=== PATIENT | male | born 1955 | race American Indian/Alaskan Native ===

== ENCOUNTER 2018-01-23 22:49 | Emergency (ER) | payer MEDICAID ==
[2018-01-23] MEDS ORDERED: NACL 0.9% 1000 ML 1,000 ML IV ONE (23:35)
--- NOTE | 2018-01-23 23:41 | Emergency Department Report ---
HPI - HPI HPI: 62-year-old male presents to ED after drinking alcohol and falling. Complain of mild headache, left wrist pain. No bleeding, no open wounds. Patient states he fall going to the bathroom, fell and hit his arm. <RENO MONTES - Last Filed: 01/24/18 01:56> <BRAN CRONIN - Last Filed: 01/24/18 11:45> - General Chief Complaint: Fall Time Seen by Provider: 01/23/18 23:34 ED Past Medical Hx - Past Medical History Previous Medical History?: Yes Hx Hypertension: Yes Hx Congestive Heart Failure: No Hx Diabetes: Yes Hx Seizures: Yes Hx Asthma: No Hx COPD: No - Social History Smoking Status: Current Every Day Smoker <RENO MONTES - Last Filed: 01/24/18 01:56> <BRAN CRONIN - Last Filed: 01/24/18 11:45> - Medications Home Medications: Home Medications Medication Instructions Recorded Confirmed Last Taken Type Hydrochlorothiazide [HCTZ] 25 mg PO QDAY 07/21/15 09/19/17 09/18/17 History Insulin Glargine [Lantus VIAL] 10 units SQ QHS 07/21/15 09/19/17 09/18/17 History metFORMIN [Glucophage] 500 mg PO BID 07/21/15 09/19/17 09/18/17 History Aspirin [Aspirin EC] 81 mg PO DAILY 09/19/17 09/19/17 09/18/17 History AtorvaSTATin [Lipitor] 20 mg PO QHS 09/19/17 09/19/17 09/18/17 History Carvedilol [Coreg] 12.5 mg PO BID 09/19/17 09/19/17 09/18/17 History Losartan [Cozaar] 100 mg PO QDAY 09/19/17 09/19/17 09/18/17 History Famotidine [Pepcid] 20 mg PO BID #60 tablet 09/22/17 Unknown Rx Folic Acid [Folvite] 1 mg PO QDAY #30 tablet 09/22/17 Unknown Rx Thiamine [Vitamin B-1] 100 mg PO QDAY #30 tablet 09/22/17 Unknown Rx levETIRAcetam [Keppra TAB] 1,000 mg PO BID #60 tablet 09/22/17 Unknown Rx ED Review of Systems ROS: Stated complaint: LACERATION TO LT ARM Other details as noted in HPI <SIMONRENO - Last Filed: 01/24/18 01:56> ROS: Stated complaint: LACERATION TO LT ARM Other details as noted in HPI <ROSEANNEBRAN - Last Filed: 01/24/18 11:45> Physical Exam - Physical Exam Vital Signs: Vital Signs 01/23/18 01/23/18 22:50 23:21 Temperature 97.7 F 97.7 F Pulse Rate 89 84 Respiratory 18 21 Rate Blood Pressure 130/89 Blood Pressure 122/81 [Left] O2 Sat by Pulse 97 96 Oximetry Physical Exam: Physical Exam: - General Limitations: Appears drunk General appearance: alert, in no apparent distress, - Head Head exam: Present: atraumatic, normocephalic - Eye Eye exam: Present: normal appearance - ENT ENT exam: Present: mucous membranes moist - Neck Neck exam: Present: normal inspection - Respiratory Respiratory exam: Present: normal lung sounds bilaterally. Absent: respiratory distress - Cardiovascular Cardiovascular Exam: Present: normal rhythm, tachycardia. Absent: systolic murmur, diastolic murmur, rubs, gallop - GI/Abdominal GI/Abdominal exam: Present: soft, normal bowel sounds - Extremities Exam Extremities exam: Present: Right wrist tenderness - Back Exam Back exam: Present: normal inspection - Neurological Exam Neurological exam: Present: alert, oriented X3 - Psychiatric Psychiatric exam: normal affect and mood - Skin Skin exam: Present: warm, dry, intact, normal color. Absent: rash <SIMONRENO - Last Filed: 01/24/18 01:56> - Physical Exam Vital Signs: Vital Signs 01/23/18 01/23/18 01/24/18 22:50 23:21 00:00 Temperature 97.7 F 97.7 F Pulse Rate 89 84 76 Respiratory 18 21 16 Rate Blood Pressure 130/89 122/80 Blood Pressure 122/81 [Left] O2 Sat by Pulse 97 96 93 Oximetry 01/24/18 01/24/18 01/24/18 01:00 02:00 03:00 Temperature Pulse Rate Respiratory Rate Blood Pressure 102/65 106/67 128/84 Blood Pressure [Left] O2 Sat by Pulse 90 92 93 Oximetry 01/24/18 01/24/18 01/24/18 04:00 05:00 06:00 Temperature Pulse Rate Respiratory Rate Blood Pressure 111/76 127/83 122/81 Blood Pressure [Left] O2 Sat by Pulse 94 96 95 Oximetry 01/24/18 07:34 Temperature 98.6 F Pulse Rate Respiratory Rate Blood Pressure Blood Pressure [Left] O2 Sat by Pulse Oximetry <BRAN CRONIN - Last Filed: 01/24/18 11:45> ED Course Vital Signs 01/23/18 01/23/18 22:50 23:21 Temperature 97.7 F 97.7 F Pulse Rate 89 84 Respiratory 18 21 Rate Blood Pressure 130/89 Blood Pressure 122/81 [Left] O2 Sat by Pulse 97 96 Oximetry - Reevaluation(s) Reevaluation #1: 01/24/18 01:56 to be d/c whenalcohol 0.08 or below <RENO MONTES - Last Filed: 01/24/18 01:56> Vital Signs 01/23/18 01/23/18 01/24/18 22:50 23:21 00:00 Temperature 97.7 F 97.7 F Pulse Rate 89 84 76 Respiratory 18 21 16 Rate Blood Pressure 130/89 122/80 Blood Pressure 122/81 [Left] O2 Sat by Pulse 97 96 93 Oximetry 01/24/18 01/24/18 01/24/18 01:00 02:00 03:00 Temperature Pulse Rate Respiratory Rate Blood Pressure 102/65 106/67 128/84 Blood Pressure [Left] O2 Sat by Pulse 90 92 93 Oximetry 01/24/18 01/24/18 01/24/18 04:00 05:00 06:00 Temperature Pulse Rate Respiratory Rate Blood Pressure 111/76 127/83 122/81 Blood Pressure [Left] O2 Sat by Pulse 94 96 95 Oximetry 01/24/18 07:34 Temperature 98.6 F Pulse Rate Respiratory Rate Blood Pressure Blood Pressure [Left] O2 Sat by Pulse Oximetry <BRAN CRONIN - Last Filed: 01/24/18 11:45> ED Medical Decision Making - Lab Data Result diagrams: 01/23/18 23:51 01/23/18 23:51 <RENO MONTES - Last Filed: 01/24/18 01:56> - Lab Data Result diagrams: 01/23/18 23:51 01/23/18 23:51 Laboratory Results - last 24 hr 01/23/18 01/23/18 01/23/18 23:51 23:51 23:51 WBC 8.1 RBC 3.63 L Hgb 12.4 Hct 36.7 MCV 101 H MCH 34 H MCHC 34 RDW 14.4 Plt Count 219 Add Manual Diff Complete Total Counted 100 Seg Neuts % (Manual) 47.0 Band Neutrophils % 0 Lymphocytes % (Manual) 37.0 H Reactive Lymphs % (Man) 0 Monocytes % (Manual) 9.0 H Eosinophils % (Manual) 5.0 H Basophils % (Manual) 2.0 H Metamyelocytes % 0 Myelocytes % 0 Promyelocytes % 0 Blast Cells % 0 Nucleated RBC % Not Reportable Seg Neutrophils # Man 3.8 Band Neutrophils # 0.0 Lymphocytes # (Manual) 3.0 Abs React Lymphs (Man) 0.0 Monocytes # (Manual) 0.7 Eosinophils # (Manual) 0.4 Basophils # (Manual) 0.2 H Metamyelocytes # 0.0 Myelocytes # 0.0 Promyelocytes # 0.0 Blast Cells # 0.0 WBC Morphology Not Reportable Hypersegmented Neuts Not Reportable Hyposegmented Neuts Not Reportable Hypogranular Neuts Not Reportable Smudge Cells Not Reportable Toxic Granulation Not Reportable Toxic Vacuolation Not Reportable Dohle Bodies Not Reportable Pelger-Huet Anomaly Not Reportable Corey Rods Not Reportable Platelet Estimate Appears normal Clumped Platelets Not Reportable Plt Clumps, EDTA Not Reportable Large Platelets Not Reportable Giant Platelets Not Reportable Platelet Satelliting Not Reportable Plt Morphology Comment Not Reportable RBC Morphology Not Reportable Dimorphic RBCs Not Reportable Polychromasia Not Reportable Hypochromasia Not Reportable Poikilocytosis Not Reportable Anisocytosis 1+ Microcytosis Not Reportable Macrocytosis Not Reportable Spherocytes Not Reportable Pappenheimer Bodies Not Reportable Sickle Cells Not Reportable Target Cells Not Reportable Tear Drop Cells Not Reportable Ovalocytes Not Reportable Helmet Cells Not Reportable [place] Bodies Not Reportable [place] Rings Not Reportable Tylor Cells Not Reportable Bite Cells Not Reportable Crenated Cell Not Reportable Elliptocytes Not Reportable Acanthocytes (Spur) Not Reportable Rouleaux Not Reportable Hemoglobin C Crystals Not Reportable Schistocytes Not Reportable Malaria parasites Not Reportable Tree Bodies Not Reportable Hem Pathologist Commnt No Sodium 142 Potassium 3.7 Chloride 100.6 Carbon Dioxide 22 Anion Gap 23 BUN 14 Creatinine 0.8 Estimated GFR > 60 BUN/Creatinine Ratio 18 Glucose 95 Calcium 9.1 Total Bilirubin 0.40 AST 30 ALT 26 Alkaline Phosphatase 51 Total Protein 6.7 Albumin 3.7 L Albumin/Globulin Ratio 1.2 Plasma/Serum Alcohol 0.32 H 01/24/18 09:42 WBC RBC Hgb Hct MCV MCH MCHC RDW Plt Count Add Manual Diff Total Counted Seg Neuts % (Manual) Band Neutrophils % Lymphocytes % (Manual) Reactive Lymphs % (Man) Monocytes % (Manual) Eosinophils % (Manual) Basophils % (Manual) Metamyelocytes % Myelocytes % Promyelocytes % Blast Cells % Nucleated RBC % Seg Neutrophils # Man Band Neutrophils # Lymphocytes # (Manual) Abs React Lymphs (Man) Monocytes # (Manual) Eosinophils # (Manual) Basophils # (Manual) Metamyelocytes # Myelocytes # Promyelocytes # Blast Cells # WBC Morphology Hypersegmented Neuts Hyposegmented Neuts Hypogranular Neuts Smudge Cells Toxic Granulation Toxic Vacuolation Dohle Bodies Pelger-Huet Anomaly Corey Rods Platelet Estimate Clumped Platelets Plt Clumps, EDTA Large Platelets Giant Platelets Platelet Satelliting Plt Morphology Comment RBC Morphology Dimorphic RBCs Polychromasia Hypochromasia Poikilocytosis Anisocytosis Microcytosis Macrocytosis Spherocytes Pappenheimer Bodies Sickle Cells Target Cells Tear Drop Cells Ovalocytes Helmet Cells [place] Bodies [place] Rings [place] Cells Bite Cells Crenated Cell Elliptocytes Acanthocytes (Spur) Rouleaux Hemoglobin C Crystals Schistocytes Malaria parasites Tree Bodies Hem Pathologist Commnt Sodium Potassium Chloride Carbon Dioxide Anion Gap BUN Creatinine Estimated GFR BUN/Creatinine Ratio Glucose Calcium Total Bilirubin AST ALT Alkaline Phosphatase Total Protein Albumin Albumin/Globulin Ratio Plasma/Serum Alcohol 0.14 H - Medical Decision Making Mr. Antonio was dc'd at 1144 AM. 2 hours after BAL 0.14. Mr. Antonio is lucid, alert sober and insightful. <BRAN CRONIN - Last Filed: 01/24/18 11:45> Critical care attestation.: If time is entered above; I have spent that time in minutes in the direct care of this critically ill patient, excluding procedure time. <RENO MONTES - Last Filed: 01/24/18 01:56> Critical care attestation.: If time is entered above; I have spent that time in minutes in the direct care of this critically ill patient, excluding procedure time. <BRAN CRONIN - Last Filed: 01/24/18 11:45> ED Disposition Is pt being admited?: No Does the pt Need Aspirin: No <RENO MONTES - Last Filed: 01/24/18 01:56> Is pt being admited?: No Does the pt Need Aspirin: No Time of Disposition: 11:45 <BRAN CRONIN - Last Filed: 01/24/18 11:45> Clinical Impression: Right wrist pain EtOH dependence Qualifiers: Substance use status: with intoxication Complication of substance-induced condition: with unspecified complication Qualified Code(s): F10.229 - Alcohol dependence with intoxication, unspecified Fall Qualifiers: Encounter type: initial encounter Qualified Code(s): W19.XXXA - Unspecified fall, initial encounter Disposition: TO HOME OR SELFCARE Condition: Stable Instructions: Polysubstance Abuse (ED), Fall Prevention (ED) Referrals: REBEL HARRISON MD [Primary Care Provider] - 3-5 Days
[2018-01-24 00:06] LABS: Hematocrit 36.7 % (35.5-45.6); Hemoglobin 12.4 gm/dl (11.8-15.2); Mean Corpuscular HGB Conc 34 % (32-34); Mean Corpuscular Hemoglobin 34 pg (28-32); Mean Corpuscular Volume 101 fl (84-94); Platelet Count 219 K/mm3 (140-440); Red Blood Count 3.63 M/mm3 (3.65-5.03); Red Cell Distribution Width 14.4 % (13.2-15.2)
[2018-01-24 00:20] LABS: Alanine Aminotransferase 26 units/L (7-56); Albumin 3.7 g/dL (3.9-5); BUN/Creatinine Ratio 18; Blood Urea Nitrogen 14 mg/dL (9-20); Calcium 9.1 mg/dL (8.4-10.2); Hemolysis Index 8
--- NOTE | 2018-01-24 00:33 | Cat Scan Report ---
FINAL REPORT PROCEDURE: CT HEAD/BRAIN WO CON TECHNIQUE: Computerized tomography of the head was performed without contrast material. HISTORY: Altered mental status COMPARISON: Prior CT scan of the brain 09/19/2017 FINDINGS: Brain: There is no evidence of intracranial hemorrhage. No parenchymal hemorrhage is seen. No mass lesions or mass effect is identified. No abnormal extra-axial fluid collections or masses are seen. Old lacunar infarcts again seen in the jordon and in the right and left thalamus. Old lacunar infarct also visualized in the right and left basal ganglia. There is some decreased density seen in the periventricular white matter without mass effect. This is fairly symmetric and does not exhibit any mass effect consistent with gliosis probably on the basis of microvascular disease or white matter changes of aging. Ventricles: The ventricles, sulcal pattern and fissures are prominent consistent with atrophy. Bones: No evidence of acute fracture. Paranasal sinuses: Visualized portions appear clear. Mastoid air cells: Visualized portions appear clear. IMPRESSION: Multiple old lacunar infarcts visualized within the jordon right and left thalamus and right and left basal ganglia. There is also evidence of moderate atrophy and gliosis. No acute intracranial abnormalities are seen. If symptoms persist or worsen consider follow-up CT scan or MRI of the brain for further evaluation.
--- NOTE | 2018-01-24 01:31 | XRay Report ---
FINAL REPORT PROCEDURE: XR WRIST 3+V RT TECHNIQUE: RIGHT wrist radiographs, including AP, lateral, and oblique views. CPT 20660 HISTORY: RT WRIST PAIN, POST FALL COMPARISON: No prior studies are available for comparison. FINDINGS: Fracture (s) and/or Dislocation(s): None . Alignment: Normal . 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 Soft tissues: Normal. There is no soft tissue swelling. There is diffuse vascular calcification. Bone mineralization: Normal . Foreign bodies: None . 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 There is no fracture or dislocation..
[2018-01-24 03:23] LABS: Total Cells Counted 100
[2018-01-24 03:24] LABS: Anisocytosis 1+
[2018-01-24 12:42] VITALS: BP 123/93
== END 2018-01-24 12:44 | disposition home or self-care (01) ==
LOC: ED 22:49
DX: M25.531 Pain in right wrist (principal); R51 Headache; F10.229 Alcohol dependence with intoxication, unspecified; I10 Essential (primary) hypertension; E11.9 Type 2 diabetes mellitus without complications; F17.200 Nicotine dependence, unspecified, uncomplicated; Z79.899 Other long term (current) drug therapy; W18.00XA Striking against unspecified object with subsequent fall, initial encounter; Y93.89 Activity, other specified; Y99.8 Other external cause status; Y92.89 Other specified places as the place of occurrence of the external cause
CPT/HCPCS: 36415; 70450; 73110; 80053; 85007; 85025; 96360; 96361; 99284; G0480; J7030; 80320

== ENCOUNTER 2019-09-04 23:20 | Emergency (ER) | payer MEDICAID ==
[2019-09-05 00:36] LABS: Basophils % (Auto) 0.6 % (0.0-1.8); Eosinophils # (Auto) 0.3 K/mm3 (0.0-0.4); Eosinophils % (Auto) 3.7 % (0.0-4.3); Hematocrit 39.5 % (35.5-45.6); Hemoglobin 13.4 gm/dl (11.8-15.2); Lymphocytes # (Auto) 1.9 K/mm3 (1.2-5.4); Lymphocytes % (Auto) 25.7 % (13.4-35.0); Mean Corpuscular HGB Conc 34 % (32-34); Mean Corpuscular Volume 99 fl (84-94); Monocytes # (Auto) 0.9 K/mm3 (0.0-0.8); Monocytes % (Auto) 12.5 % (0.0-7.3); Platelet Count 227 K/mm3 (140-440); Red Blood Count 3.99 M/mm3 (3.65-5.03); Red Cell Distribution Width 13.9 % (13.2-15.2)
[2019-09-05] MEDS ORDERED: KEPPRA 1,000 MG/NS 0.75% 100ML 1,000 MG/100 ML BAG IV ONE (00:41)
[2019-09-05] MEDS ORDERED: ATIVAN IV ONE (00:41)
[2019-09-05] MEDS ORDERED: ATIVAN ONE (00:44)
--- NOTE | 2019-09-05 00:52 | Cat Scan Report ---
CT head without contrast INDICATION : Altered mental status TECHNIQUE: Axial imaging performed from the skull apex through the skull base without the use of con trast. All CT examinations performed at this facility utilize dose modulation, iterative reconstruct ion or weight-based dosing, when appropriate, to reduce radiation dose to as low as reasonably achiev able. COMPARISON: 01/24/2019 FINDINGS: No acute intracranial hemorrhage or parenchymal abnormality. Mild diffuse cerebral atrophy with hydrocephalus ex vacuo, similar to the prior exam. There are multiple lacunar infarcts within t he basal ganglia, jordon and brainstem region. No extra-axial collection. The paranasal sinuses and orb its are unremarkable. Skull intact. IMPRESSION: No acute abnormality. No change from 01/24/2018. Signer Name: Nir Diaz MD Signed: 09/05/2019 12:47 AM Workstation Name: [id number]
--- NOTE | 2019-09-05 00:52 | Emergency Department Report ---
ED Seizure HPI - General Chief Complaint: Seizure Stated Complaint: SEIZURE Time Seen by Provider: 09/04/19 23:34 Source: patient, EMS Mode of arrival: Stretcher Limitations: No Limitations - History of Present Illness Initial Comments: 62-year-old -[place] male with a known seizure disorder presents emergency department complaining of possible seizure resulting in head trauma. He states that he cannot recall the entire event and thinks that he passed out secondary to a possible seizure. During the fall hit his head on object on the way down to the floor resulted in bruising and amount nasal laceration. Reports no fever, chills, sweats, chest pain, palpitations, nausea, vomiting MD Complaint: possible seizure -: Sudden Description of Episode: loss of consciousness Seizure History: known seizure disorder, compliant with medication Place: home Associated Symptoms: denies: chest pain, confusion, cough, diaphoresis, loss of appetite, malaise, rash, weakness, tongue injury, shoulder dislocation Treatments Prior to Arrival: none - Related Data Home Medications Medication Instructions Recorded Confirmed Last Taken Insulin Glargine [Lantus VIAL] 10 units SQ QHS 07/21/15 09/19/17 09/18/17 hydroCHLOROthiazide [HCTZ] 25 mg PO QDAY 07/21/15 09/19/17 09/18/17 metFORMIN [Glucophage] 500 mg PO BID 07/21/15 09/19/17 09/18/17 Aspirin [Aspirin EC] 81 mg PO DAILY 09/19/17 09/19/17 09/18/17 AtorvaSTATin [Lipitor] 20 mg PO QHS 09/19/17 09/19/17 09/18/17 Carvedilol [Coreg] 12.5 mg PO BID 09/19/17 09/19/17 09/18/17 Losartan [Cozaar] 100 mg PO QDAY 09/19/17 09/19/17 09/18/17 Previous Rx's Medication Instructions Recorded Last Taken Type Famotidine [Pepcid] 20 mg PO BID #60 tablet 09/22/17 Unknown Rx Folic Acid [Folvite] 1 mg PO QDAY #30 tablet 09/22/17 Unknown Rx Thiamine [Vitamin B-1] 100 mg PO QDAY #30 tablet 09/22/17 Unknown Rx levETIRAcetam [Keppra TAB] 1,000 mg PO BID #60 tablet 09/22/17 Unknown Rx Allergies Allergy/AdvReac Type Severity Reaction Status Date / Time No Known Allergies Allergy Verified 07/21/15 06:59 ED Review of Systems ROS: Stated complaint: SEIZURE Other details as noted in HPI Comment: All other systems reviewed and negative ED Past Medical Hx - Past Medical History Previous Medical History?: Yes Hx Hypertension: Yes Hx Congestive Heart Failure: No Hx Diabetes: Yes Hx Seizures: Yes Hx Asthma: No Hx COPD: No - Surgical History Past Surgical History?: No - Social History Smoking Status: Never Smoker Substance Use Type: Alcohol - Medications Home Medications: Home Medications Medication Instructions Recorded Confirmed Last Taken Type Insulin Glargine [Lantus VIAL] 10 units SQ QHS 07/21/15 09/19/17 09/18/17 History hydroCHLOROthiazide [HCTZ] 25 mg PO QDAY 07/21/15 09/19/17 09/18/17 History metFORMIN [Glucophage] 500 mg PO BID 07/21/15 09/19/17 09/18/17 History Aspirin [Aspirin EC] 81 mg PO DAILY 09/19/17 09/19/17 09/18/17 History AtorvaSTATin [Lipitor] 20 mg PO QHS 09/19/17 09/19/17 09/18/17 History Carvedilol [Coreg] 12.5 mg PO BID 09/19/17 09/19/17 09/18/17 History Losartan [Cozaar] 100 mg PO QDAY 09/19/17 09/19/17 09/18/17 History Famotidine [Pepcid] 20 mg PO BID #60 tablet 09/22/17 Unknown Rx Folic Acid [Folvite] 1 mg PO QDAY #30 tablet 09/22/17 Unknown Rx Thiamine [Vitamin B-1] 100 mg PO QDAY #30 tablet 09/22/17 Unknown Rx levETIRAcetam [Keppra TAB] 1,000 mg PO BID #60 tablet 09/22/17 Unknown Rx ED Physical Exam - General Limitations: No Limitations General appearance: alert, in no apparent distress - Head Head exam: Present: atraumatic, normocephalic - Eye Eye exam: Present: normal appearance, PERRL, EOMI. Absent: nystagmus Pupils: Present: normal accommodation - ENT ENT exam: Present: mucous membranes moist - Neck Neck exam: Present: normal inspection, full ROM - Respiratory Respiratory exam: Present: normal lung sounds bilaterally. Absent: respiratory distress, wheezes, rhonchi, chest wall tenderness, accessory muscle use - Cardiovascular Cardiovascular Exam: Present: regular rate, normal rhythm. Absent: systolic murmur, diastolic murmur, rubs, gallop - GI/Abdominal GI/Abdominal exam: Present: soft, normal bowel sounds. Absent: tenderness, guarding, hyperactive bowel sounds, hypoactive bowel sounds, organomegaly - Rectal Rectal exam: Present: deferred - Extremities Exam Extremities exam: Present: normal inspection, full ROM, normal capillary refill - Back Exam Back exam: Present: normal inspection, full ROM. Absent: CVA tenderness (R), CVA tenderness (L) - Neurological Exam Neurological exam: Present: alert, oriented X3, CN II-XII intact, normal gait. Absent: motor sensory deficit - Psychiatric Psychiatric exam: Present: normal affect, normal mood. Absent: anxious, flat affect - Skin Skin exam: Present: warm, dry, intact, normal color. Absent: rash ED Course Vital Signs 09/04/19 23:20 Temperature 98.6 F Pulse Rate 87 Respiratory 14 Rate Blood Pressure 147/85 Blood Pressure 147/87 [Left] O2 Sat by Pulse 96 Oximetry - Reevaluation(s) Reevaluation #1: 09/05/19 00:35 Was notified by nursing patient was actively having a seizure while here in the emergency department after returning from CAT scan. He was given Ativan and Keppra IV. 09/05/19 04:14 Reevaluation #2: 09/05/19 04:14 Still no seizure activity at this present time standing urinate on his own power alert and oriented 3 response all questions well appears to be of sound judgment. Plan is to discharge home to the care of his sister and walking devices ED Medical Decision Making - Lab Data Result diagrams: 09/05/19 00:25 09/05/19 00:25 - Radiology Data Findings [facility] [address] [place] [address] Cat Scan Report Signed Patient: DRE GRAHAM MR#: [id number] : 1955 Acct:[id number] Age/Sex: 64 / M ADM Date: 09/04/19 Loc: ED Attending Dr: Ordering Physician: WILLY WEINSTEIN Date of Service: 09/05/19 Procedure(s): CT head/brain wo con Accession Number(s): [id number] cc: NAYE WILLY MONTOYA CT head without contrast INDICATION : Altered mental status TECHNIQUE: Axial imaging performed from the skull apex through the skull base without the use of contrast. All CT examinations performed at this facility utilize dose modulation, iterative reconstruction or weight-based dosing, when appropriate, to reduce radiation dose to as low as reasonably achievable. COMPARISON: 01/24/2019 FINDINGS: No acute intracranial hemorrhage or parenchymal abnormality. Mild diffuse cerebral atrophy with hydrocephalus ex vacuo, similar to the prior exam. There are multiple lacunar infarcts within the basal ganglia, jordon and brainstem region. No extra-axial collection. The paranasal sinuses and orbits are unremarkable. Skull intact. IMPRESSION: No acute abnormality. No change from 01/24/2018. Signer Name: Nir Diaz MD Signed: 09/05/2019 12:47 AM Workstation Name: [id number] - Medical Decision Making 64-year-old -[place] male with a known seizure history, history of diabetes, hypercholesterolemia, arthritis, hypertension as well as, not all use presents to emergency department complaining of passing out or have a seizure last night. He was witnessed seizure while here in the emergency department states he is not sure of the initial presentation was caused him to lose consciousness. CT scans were normal and laboratory data showed no urgent or emergent findings. His physical examination shows showed no neurological deficits no examination no facial asymmetry, no ataxia, normal range of motion of his upper extremity and lower extremities. He usually walks with a cane while at home and also has a sister at the house also helps him out. Currently he is at his baseline no acute distress alert and oriented 3 is able to stand and urinate under his own power. While here in the emergency department he was loaded up with Her house also given some Ativan has been monitored for over 4 hours with no seizure activity. Critical care attestation.: If time is entered above; I have spent that time in minutes in the direct care of this critically ill patient, excluding procedure time. ED Disposition Clinical Impression: Seizure Disposition: DC-01 TO HOME OR SELFCARE Is pt being admited?: No Does the pt Need Aspirin: No Condition: Stable Instructions: Recurrent Seizures Adult (ED) Additional Instructions: You were treated with an intravenous dose of Keppra while in the emergency department was appears to have stabilized her seizure activity please be sure to be compliant with the medication and also refrain from any activities to us with the seizure seizure threshold like , certain medications, alcohol, illicit drugs, and various visual stimulus. Referrals: PRIMARY CARE, [Primary Care Provider] - 3-5 Days
[2019-09-05 00:59] LABS: Alanine Aminotransferase 20 units/L (7-56); Albumin 4.1 g/dL (3.9-5); BUN/Creatinine Ratio 18; Blood Urea Nitrogen 18 mg/dL (9-20); Hemolysis Index 67
[2019-09-05 02:12] LABS: Bilirubin,Urine NEG (Negative); Blood,Urine SM (Negative); Color,Urine Straw (Yellow); Urobilinogen,Urine < 2.0 mg/dL (<2.0)
[2019-09-05 02:36] LABS: Amphetamine Screen,Urine PRESUMPTIVE NEGATIVE; Benzodiazepines Screen,Urine PRESUMPTIVE NEGATIVE; Cocaine Screen,Urine PRESUMPTIVE NEGATIVE; Methadone Screen,Urine PRESUMPTIVE NEGATIVE; Opiate Screen,Urine PRESUMPTIVE NEGATIVE
[2019-09-05 02:47] LABS: Cannabinoid Screen,Urine PRESUMPTIVE POSITIVE
[2019-09-05] MEDS ORDERED: TYLENOL PO ONE (04:16)
[2019-09-05 05:28] VITALS: BP 120/78
== END 2019-09-05 07:00 | disposition home or self-care (01) ==
LOC: ED 23:20
DX: R56.9 Unspecified convulsions (principal); I10 Essential (primary) hypertension; E11.9 Type 2 diabetes mellitus without complications; Z79.899 Other long term (current) drug therapy
CPT/HCPCS: 36415; 70450; 80053; 80307; 81001; 85025; 85027; 96365; 96375; 99285; J1953; J2060; 80320; G0480